=== PATIENT | female | born 1990 | race African-American/Black ===

== ENCOUNTER 2022-09-03 08:26 | Emergency (ER) | payer BC | END 2022-09-03 09:41 | disposition home or self-care (01) | LOC: CSHERS 08:26 | DX: U07.1 COVID-19 (principal); J06.9 Acute upper respiratory infection, unspecified | CPT/HCPCS: 93005; U0003; U0005 ==

== ENCOUNTER 2023-06-13 07:59 | Emergency (ER) | payer BC ==
[2023-06-13 09:45] LABS: SARS-CoV-2 NAA Rapid Test Not Detected (NotDetected)
== END 2023-06-13 10:00 | disposition home or self-care (01) ==
LOC: CSHERS 07:59
DX: J06.9 Acute upper respiratory infection, unspecified (principal); J44.89 Other specified chronic obstructive pulmonary disease; Z20.822 Contact with and (suspected) exposure to COVID-19
CPT/HCPCS: 99283

== ENCOUNTER 2024-07-05 07:28 | Emergency (ER) | payer BC ==
[2024-07-05] MEDS ORDERED: Ibuprofen 200 MG TAB ONE (07:58)
[2024-07-05] MEDS ORDERED: Acetaminophen 500 MG TAB ONE (07:59)
== END 2024-07-05 08:49 | disposition home or self-care (01) ==
LOC: CSHERS 07:28
DX: S93.402A Sprain of unspecified ligament of left ankle, initial encounter (principal); W18.43XA Slipping, tripping and stumbling without falling due to stepping from one level to another, initial encounter
CPT/HCPCS: 99283